=== PATIENT | female | born 1950 | race Caucasian/White ===

== ENCOUNTER 2017-05-14 12:00 | Inpatient (IN) | payer OTHER ==
[~2017-05-14] VITALS: Ht 157.5 cm; Wt 62.9 kg
[~2017-05-14 12:00] MED LIST: ALBUAER3 IN; ASPI-231 PO; CARV3.1240 PO; CYCL5TAB PO; GLIP-115 PO; LEVO88TA36 PO; LOSA100T27 PO; LOSA50TA6 PO; SIMV-8 PO
[2017-05-14 13:26] LABS: Basophils # (auto) 0 uL; Basophils % (auto) 0.3 % (0.0-2.0); CONDITION Y; DEFINITIVE SEE PRINTOUT; Eosinophils # (auto) 0.1 uL; Eosinophils % (auto) 0.6 % (0.0-7.0); Hematocrit 26.9 % (36.0-46.0); Lymphocytes # (auto) 1.8 uL; Lymphocytes % (auto) 16.6 % (10.0-50.0); Mean Corpuscular Hemoglobin 26.8 pg (28.0-32.0); Mean Corpuscular Hgb Conc. 33.5 g/dL (32.0-36.0); Mean Platelet Volume 6.8 fL (7.4-10.4); Monocytes # (auto) 0.8 uL; Monocytes % (auto) 7.8 % (0.0-12.0); Neutrophils # (auto) 8.1 uL; Neutrophils % (auto) 74.7 % (37.0-80.0); Platelet Count (auto) 658 10^3/uL (140-450); Red Cell Distribution Width 19.2 % (11.6-16.0); White Blood Cell 10.8 10^3/uL (4.4-10.8)
[2017-05-14 13:36] LABS: BUN/Creatinine Ratio 20.2; Calcium 9.2 mg/dL (8.5-10.1); Potassium 5.1 mmol/L (3.5-5.1)
[2017-05-14 13:37] LABS: INR 0.92 (0.9-1.15); Partial Thromboplastin Time 32.6 sec (22.64-33.71)
[2017-05-14] MEDS ORDERED: ceFAZolin 1GM/50ML D5W 50 ML IV ONE (14:26)
[2017-05-14] MEDS ORDERED: ceFOXitin 2GM/100ML D5W 100 ML IV ONE (14:37)
[2017-05-14] MEDS ORDERED: MIDAZOLAM HCL 1MG/1ML-2 ML VIAL ONE (14:44)
[2017-05-14] MEDS ORDERED: fentaNYL CITRATE 100 MCG/2 ML VL ONE (14:44)
[2017-05-14] MEDS ORDERED: MEPERIDINE HCL (50 MG/ML) 1 ML VIAL ONE (14:44)
[2017-05-14] MEDS ORDERED: fentaNYL CITRATE 5 ML ONE (14:44)
[2017-05-14] MEDS ORDERED: DEXAMETHASONE SOD PHOS 10MG/1ML VIAL INJ ONE (15:23)
[2017-05-14] MEDS ORDERED: ROCURONIUM 10MG/ML 10ML VIAL IV ONE (15:40)
[2017-05-14] MEDS ORDERED: PROPOFOL 10 MG/ML 20 ML IV ONE (15:40)
[2017-05-14] MEDS ORDERED: ONDANSETRON HCL 4 MG/2 ML VIAL ONE (15:40)
[2017-05-14] MEDS ORDERED: BUPIVACAINE 0.25% INJ 50ML VIAL ONE (16:22)
[2017-05-14] MEDS ORDERED: LIDOCAINE W/ EPINEPHRINE 1 % INJ 30ML ONE (16:22)
[2017-05-14] MEDS ORDERED: ONDANSETRON HCL 4 MG/2 ML VIAL IV PRN (16:45)
[2017-05-14] MEDS ORDERED: NEOSTIGMINE 1 MG/ML INJ (10mg/10ML VIAL) ONE (16:45)
[2017-05-14] MEDS ORDERED: diphenhdrAMINE HCL 50 MG/1 ML VL IV PRN (16:45)
[2017-05-14] MEDS ORDERED: ACETAMINOPHEN/CODEINE#3 (300/30mg) TAB PO PRN (16:45)
[2017-05-14] MEDS ORDERED: CEFOXITIN SODIUM 1 GM in D5W 5% 50 ML IV SCH (16:45)
[2017-05-14] MEDS ORDERED: HYDROmorphone HCL 2 MG/ML VL IV PRN ×2 (16:45→17:15)
[2017-05-14] MEDS ORDERED: GLYCOPYRROLATE 0.2 MG/ML 1ML VIAL ONE (16:45)
[2017-05-14] MEDS ORDERED: LOSARTAN POTASSIUM 50 MG TAB PO PRN (16:45)
[2017-05-14] MEDS ORDERED: DEXTROSE (50%) 50ML SYRG IV PRN (16:45)
[2017-05-14] MEDS: ACCU-CHEK COMFORT CURVE STRIP VI SCH ×2 (17:00→22:21)
[2017-05-14] MEDS: InsuLIN REG 1unit/0.01ml Soln (100units/ml) SC SCH (17:00)
[2017-05-14] MEDS ORDERED: ACCU-CHEK COMFORT CURVE STRIP VI ONE (17:15)
[2017-05-14] MEDS ORDERED: MIDAZOLAM HCL 1MG/1ML-2 ML VIAL IV PRN (17:15)
[2017-05-14] MEDS ORDERED: KETOROLAC TROMETH 30 MG/ML 1ML VIAL IV ONE (17:15)
[2017-05-14] MEDS ORDERED: LABETALOL HCL 5 MG/ML 4ML SYRINGE IV PRN (17:15)
[2017-05-14] MEDS ORDERED: ePHEDrine SULFATE 50 MG/ML AMP IV PRN (17:15)
[2017-05-14] MEDS ORDERED: MORPHINE SULFATE 4 MG/ML SYRG IV PRN (17:15)
[2017-05-14] MEDS ORDERED: ONDANSETRON HCL 4 MG/2 ML VIAL IV ONE (17:15)
[2017-05-14 17:35] LABS: Basophils # (auto) 0.1 uL; Basophils % (auto) 0.5 % (0.0-2.0); CONDITION Y; Eosinophils # (auto) 0 uL; Eosinophils % (auto) 0.2 % (0.0-7.0); Lymphocytes # (auto) 1.2 uL; Mean Corpuscular Hemoglobin 27.3 pg (28.0-32.0); Mean Corpuscular Hgb Conc. 33.4 g/dL (32.0-36.0); Mean Corpuscular Volume 81.7 fL (80.0-100.0); Mean Platelet Volume 6.8 fL (7.4-10.4); Monocytes # (auto) 0.6 uL; Monocytes % (auto) 3.8 % (0.0-12.0); Neutrophils # (auto) 12.7 uL; Neutrophils % (auto) 87.5 % (37.0-80.0); Platelet Count (auto) 543 10^3/uL (140-450); Red Cell Distribution Width 18.5 % (11.6-16.0); White Blood Cell 14.5 10^3/uL (4.4-10.8)
[2017-05-14] MEDS: ALBUTEROL SULF 2.5 MG/0.5ML(0.5%) NEB SOLN NEB SCH (18:00)
[2017-05-14] MEDS ORDERED: guaiFENesin-COD 10 ML UD PO PRN (19:15)
[2017-05-14 20:00] VITALS: BP 144/76
[2017-05-14] MEDS: SOD CHL 0.45% 1,000 ML IV SCH (21:10)
[2017-05-14] MEDS: CEFOXITIN SODIUM 1 GM in D5W 5% 50 ML IV SCH (21:10)
[2017-05-14 21:42] VITALS: BP 157/73
[2017-05-14 22:00] VITALS: BP 144/76
[2017-05-14] MEDS ORDERED: ATORVASTATIN 20 MG TAB PO SCH (22:00)
[2017-05-14] MEDS ORDERED: InsuLIN REG 1unit/0.01ml Soln (100units/ml) SC SCH (22:00)
[2017-05-14] MEDS: CARVEDILOL 3.125 MG TAB PO SCH (22:20)
[2017-05-15] MEDS: ALBUTEROL SULF 2.5 MG/0.5ML(0.5%) NEB SOLN NEB SCH ×3 (01:00→11:13)
[2017-05-15] MEDS: CEFOXITIN SODIUM 1 GM in D5W 5% 50 ML IV SCH (04:11)
[2017-05-15 05:30] VITALS: BP 137/63
[2017-05-15 06:15] LABS: BUN/Creatinine Ratio 16.2; Calcium 8.5 mg/dL (8.5-10.1)
[2017-05-15] MEDS: ACCU-CHEK COMFORT CURVE STRIP VI SCH ×2 (06:40→11:37)
[2017-05-15] MEDS: InsuLIN REG 1unit/0.01ml Soln (100units/ml) SC SCH ×2 (06:40→11:30)
[2017-05-15 07:03] LABS: Potassium 5.6 mmol/L (3.5-5.1)
[2017-05-15] MEDS: SOD CHL 0.45% 1,000 ML IV SCH ×2 (08:10→08:42)
[2017-05-15 09:00] VITALS: BP 139/52
[2017-05-15] MEDS ORDERED: LEVOTHYROXINE SODIUM 88 MCG TAB PO SCH (10:00)
[2017-05-15] MEDS ORDERED: glipiZIDE 5 MG TAB PO SCH (10:00)
[2017-05-15] MEDS: CARVEDILOL 3.125 MG TAB PO SCH (10:17)
[2017-05-15 13:07] VITALS: BP 148/64
[2017-05-15 13:13] VITALS: BP 148/64
== END 2017-05-15 14:45 | disposition home or self-care (01) | DRG 657 ==
LOC: SUR 12:00 → WEST WING 12:01 → TELE-WESTW 22:14
PROVIDERS: ADMIT Urology; ATTEND Internal Medicine
PROC: 30233N1 Transfusion of Nonautologous Red Blood Cells into Peripheral Vein, Percutaneous Approach (ICD-10-PCS; 2017-05-14)
PROC: 0TT04ZZ Resection of Right Kidney, Percutaneous Endoscopic Approach (ICD-10-PCS; principal; 2017-05-14 14:49)
DX: C64.1 Malignant neoplasm of right kidney, except renal pelvis (principal); E87.1 Hypo-osmolality and hyponatremia; E03.8 Other specified hypothyroidism; E78.00 Pure hypercholesterolemia, unspecified; E11.9 Type 2 diabetes mellitus without complications; I10 Essential (primary) hypertension; E78.5 Hyperlipidemia, unspecified; Z90.710 Acquired absence of both cervix and uterus; Z90.49 Acquired absence of other specified parts of digestive tract; Z80.8 Family history of malignant neoplasm of other organs or systems
CPT/HCPCS: 36415; 80048; 82962; 85025; 85610; 85730; 86850; 86900; 86901; 86920; 88307; 88341; 88342; 94640; J0690; J0694; J1100; J1815; J2250; J2405; J2704; J3490; J7060